=== PATIENT | female | born 1980 | race American Indian/Alaskan Native ===

== ENCOUNTER 2016-12-10 03:42 | Emergency (ER) | payer MEDICAID, OTHER ==
[2016-12-10] MEDS ORDERED: Pantoprazole 40 MG Vial IVPUSH ONE (04:35)
[2016-12-10] MEDS ORDERED: HYDROmorphone 1 MG/ML Syringe IVPUSH ONE (04:36)
[2016-12-10] MEDS ORDERED: Ondansetron 4 MG/2 ML SDV IVPUSH ONE (04:37)
--- NOTE | 2016-12-10 04:40 | EDM.PDOC ---
[id number] Complaint: Abdominal Pain Stated Complaint: STOMACH BURNING Time Seen by Provider: 12/10/16 04:38 - History of Present Illness Duration: Day(s): - Related Data Allergies Allergy/AdvReac Type Severity Reaction Status Date / Time No Known Allergies Allergy Verified 12/10/16 03:56 Home Meds: Home Meds Aspirin/Calcium Carbonate/Mag [Aspirin Buffered 325 mg Tab] 2 tab PO ASDIRECTED PRN 12/10/16 [History] Course - Vital Signs Last Recorded V/S: Last Vital Signs Temp 36.3 C 12/10/16 07:37 Pulse 74 12/10/16 07:37 Resp 18 12/10/16 07:37 BP 126/73 12/10/16 07:37 Pulse Ox 99 12/10/16 07:37 - Orders/Labs/Meds Labs: Laboratory Tests 12/10/16 12/10/16 12/10/16 Range/Units 04:21 04:35 04:35 WBC 14.3 H (4.5-11.0) K/uL RBC 4.11 (3.30-5.50) M/uL Hgb 12.7 (12.0-15.0) g/dL Hct 38.0 (36.0-48.0) % MCV 93 (80-98) fL MCH 31 (27-31) pg MCHC 33 (32-36) % Plt Count 318 (150-400) K/uL Neut % (Auto) 50 (36-66) % Lymph % (Auto) 36 (24-44) % [place] % (Auto) 10 H (2-6) % Eos % (Auto) 3 (2-4) % Baso % (Auto) 1 (0-1) % Sodium 144 (140-148) mmol/L Potassium 3.9 (3.6-5.2) mmol/L Chloride 109 H (100-108) mmol/L Carbon Dioxide 26 (21-32) mmol/L Anion Gap 12.9 (5.0-14.0) mmol/L BUN 13 (7-18) mg/dL Creatinine 0.7 (0.6-1.0) mg/dL Est Cr Clr Drug Dosing 92.79 mL/min Estimated GFR (MDRD) > 60 (>60) Glucose 105 (74-106) mg/dL Calcium 8.7 (8.5-10.1) mg/dL Total Bilirubin 0.2 (0.2-1.0) mg/dL AST 14 L (15-37) U/L ALT 16 (12-78) U/L Alkaline Phosphatase 64 (46-116) U/L C-Reactive Protein 0.35 H (0.0-0.3) mg/dL Total Protein 7.1 (6.4-8.2) g/dL Albumin 3.5 (3.4-5.0) g/dL Globulin 3.6 H (2.3-3.5) g/dL Albumin/Globulin Ratio 1.0 L (1.2-2.2) Lipase (73-393) U/L Urine Color Yellow Urine Appearance Clear Urine pH 6.0 (4.5-8.0) Ur Specific [place] 1.025 (1.008-1.030) Urine Protein Negative (NEGATIVE) mg/dL Urine Glucose (UA) Normal (NEGATIVE) mg/dL Urine Ketones Negative (NEGATIVE) mg/dL Urine Occult Blood Moderate (NEGATIVE) Urine Nitrite Negative (NEGATIVE) Urine Bilirubin Negative (NEGATIVE) Urine Urobilinogen Normal (NORMAL) mg/dL Ur Leukocyte Esterase Negative (NEGATIVE) Urine RBC 10-20 H (0-5) Urine WBC 0-5 (0-5) Ur Epithelial Cells Few Amorphous Sediment Not seen Urine Bacteria Not seen Urine Mucus Not seen 12/10/16 Range/Units 04:40 WBC (4.5-11.0) K/uL RBC (3.30-5.50) M/uL Hgb (12.0-15.0) g/dL Hct (36.0-48.0) % MCV (80-98) fL MCH (27-31) pg MCHC (32-36) % Plt Count (150-400) K/uL Neut % (Auto) (36-66) % Lymph % (Auto) (24-44) % [place] % (Auto) (2-6) % Eos % (Auto) (2-4) % Baso % (Auto) (0-1) % Sodium (140-148) mmol/L Potassium (3.6-5.2) mmol/L Chloride (100-108) mmol/L Carbon Dioxide (21-32) mmol/L Anion Gap (5.0-14.0) mmol/L BUN (7-18) mg/dL Creatinine (0.6-1.0) mg/dL Est Cr Clr Drug Dosing mL/min Estimated GFR (MDRD) (>60) Glucose (74-106) mg/dL Calcium (8.5-10.1) mg/dL Total Bilirubin (0.2-1.0) mg/dL AST (15-37) U/L ALT (12-78) U/L Alkaline Phosphatase (46-116) U/L C-Reactive Protein (0.0-0.3) mg/dL Total Protein (6.4-8.2) g/dL Albumin (3.4-5.0) g/dL Globulin (2.3-3.5) g/dL Albumin/Globulin Ratio (1.2-2.2) Lipase 176 (73-393) U/L Urine Color Urine Appearance Urine pH (4.5-8.0) Ur Specific [place] (1.008-1.030) Urine Protein (NEGATIVE) mg/dL Urine Glucose (UA) (NEGATIVE) mg/dL Urine Ketones (NEGATIVE) mg/dL Urine Occult Blood (NEGATIVE) Urine Nitrite (NEGATIVE) Urine Bilirubin (NEGATIVE) Urine Urobilinogen (NORMAL) mg/dL Ur Leukocyte Esterase (NEGATIVE) Urine RBC (0-5) Urine WBC (0-5) Ur Epithelial Cells Amorphous Sediment Urine Bacteria Urine Mucus Meds: Medications Discontinued Medications Generic Name Dose Route Start Last Admin Trade Name Freq PRN Reason Stop Dose Admin Al Hydroxide/Mg Hydroxide 15 0 ml 12/10/16 05:41 12/10/16 05:47 ml/ Lidocaine HCl 15 ml PO 12/10/16 05:42 45 ml ONETIME ONE Administration Hydromorphone HCl 0.5 mg 12/10/16 04:36 12/10/16 04:48 Dilaudid IVPUSH 12/10/16 04:37 0.5 mg ONETIME ONE Administration Sodium Chloride 1,000 mls @ 500 mls/hr 12/10/16 04:45 12/10/16 04:45 Normal Saline IV 500 mls/hr ASDIRECTED DEVONTE Administration Sodium Chloride 1,000 mls @ 500 mls/hr 12/10/16 05:45 12/10/16 06:41 Normal Saline IV 500 mls/hr ASDIRECTED DEVONTE Administration Ondansetron HCl 4 mg 12/10/16 04:37 12/10/16 04:46 Zofran IVPUSH 12/10/16 04:38 4 mg ONETIME ONE Administration Pantoprazole Sodium 40 mg 12/10/16 04:35 12/10/16 04:51 Protonix Iv IVPUSH 12/10/16 04:36 40 mg ONETIME ONE Administration Sucralfate 1 gm 12/10/16 06:42 12/10/16 07:36 Carafate PO 12/10/16 06:43 1 gm ONETIME ONE Administration Departure - Departure Disposition: Home, Self-Care 01 Clinical Impression: Gastrointestinal irritation, Dehydration - Discharge Information Instructions: Gastritis, Adult, [id number] Referrals: PCP,None [Primary Care Provider] - Forms: ED Department Discharge Care Plan Goals: eat several small meals, --daily, prilosec 20mg bid for 4 days then 1 tab daily. If persistnt problems rtc. - Assessment/Plan Plan: after fluids, protonix and IV dilaudid her pain resolved and she was feeling better. She will be discharged to home with use of oral protonix. Discussed decreasing smoking, caffiene and better eating to help her stomach. follow-up with PMD if not improving <Rosalia Landeros - Last Filed: 12/15/16 07:07> ED HPI GENERAL MEDICAL PROBLEM - General Source of Information: Reports: Patient, Family History Limitations: Reports: No Limitations - History of Present Illness INITIAL COMMENTS - FREE TEXT/NARRATIVE: pt arrived with burning pain in mid abdoman and lef sided pain. 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: Neurological History: Reports: Migraines Psychiatric History: Reports: Anxiety - Infectious Disease History Infectious Disease History: Reports: Chicken Pox - Past Surgical History Female Surgical History: Reports: Section, Tubal Ligation Social & Family History - Tobacco Use Smoking Status *Q: Current Every Day Smoker Years of Tobacco use: 15 Packs/Tins Daily: 0.5 Used Tobacco, but Quit: No Second Hand Smoke Exposure: Yes - Caffeine Use Caffeine Use: Reports: Coffee - Alcohol Use Days Per Week of Alcohol Use: 0 - Recreational Drug Use Recreational Drug Use: Yes Drug Use in Last 12 Months: No Recreational Drug Type: Reports: Marijuana/Hashish - Living Situation & Occupation Living situation: Reports: with Significant Other Occupation: Unemployed ED ROS GENERAL - Review of Systems Review Of Systems: See Below Constitutional: Reports: No Symptoms HEENT: Reports: No Symptoms Respiratory: Reports: No Symptoms Cardiovascular: Reports: No Symptoms Endocrine: Reports: No Symptoms GI/Abdominal: Reports: Abdominal Pain, Nausea, Vomiting : Reports: No Symptoms Musculoskeletal: Reports: No Symptoms Skin: Reports: No Symptoms ED EXAM, GI/ABD - Physical Exam Exam: See Below Text/Narrative:: pt arrived with a burning sensation in the abdoman.. She felt nauseated. She has not eaten or drank normally. She was at a in [place] and really had not eaten properly Exam Limited By: No Limitations General Appearance: Alert, Anxious Eyes: Bilateral: Normal Appearance, EOMI Ears: Normal TMs Nose: Normal Inspection Throat/Mouth: Normal Inspection Head: Atraumatic Neck: Normal Inspection Respiratory/Chest: No Respiratory Distress Cardiovascular: Regular Rate, Rhythm GI/Abdominal: Other ( abdoman is not guarded she has a burning sensation. ) (Female) Exam: Deferred Rectal (Female) Exam: Deferred Back Exam: Normal Inspection Extremities: Normal Inspection Neurological: Alert, Oriented, Normal Cognition Psychiatric: Depressed Mood Course - Orders/Labs/Meds Labs: Laboratory Tests 12/10/16 12/10/16 12/10/16 Range/Units 04:21 04:35 04:35 WBC 14.3 H (4.5-11.0) K/uL RBC 4.11 (3.30-5.50) M/uL Hgb 12.7 (12.0-15.0) g/dL Hct 38.0 (36.0-48.0) % MCV 93 (80-98) fL MCH 31 (27-31) pg MCHC 33 (32-36) % Plt Count 318 (150-400) K/uL Neut % (Auto) 50 (36-66) % Lymph % (Auto) 36 (24-44) % [place] % (Auto) 10 H (2-6) % Eos % (Auto) 3 (2-4) % Baso % (Auto) 1 (0-1) % Sodium 144 (140-148) mmol/L Potassium 3.9 (3.6-5.2) mmol/L Chloride 109 H (100-108) mmol/L Carbon Dioxide 26 (21-32) mmol/L Anion Gap 12.9 (5.0-14.0) mmol/L BUN 13 (7-18) mg/dL Creatinine 0.7 (0.6-1.0) mg/dL Est Cr Clr Drug Dosing 92.79 mL/min Estimated GFR (MDRD) > 60 (>60) Glucose 105 (74-106) mg/dL Calcium 8.7 (8.5-10.1) mg/dL Total Bilirubin 0.2 (0.2-1.0) mg/dL AST 14 L (15-37) U/L ALT 16 (12-78) U/L Alkaline Phosphatase 64 (46-116) U/L C-Reactive Protein 0.35 H (0.0-0.3) mg/dL Total Protein 7.1 (6.4-8.2) g/dL Albumin 3.5 (3.4-5.0) g/dL Globulin 3.6 H (2.3-3.5) g/dL Albumin/Globulin Ratio 1.0 L (1.2-2.2) Lipase (73-393) U/L Urine Color Yellow Urine Appearance Clear Urine pH 6.0 (4.5-8.0) Ur Specific [place] 1.025 (1.008-1.030) Urine Protein Negative (NEGATIVE) mg/dL Urine Glucose (UA) Normal (NEGATIVE) mg/dL Urine Ketones Negative (NEGATIVE) mg/dL Urine Occult Blood Moderate (NEGATIVE) Urine Nitrite Negative (NEGATIVE) Urine Bilirubin Negative (NEGATIVE) Urine Urobilinogen Normal (NORMAL) mg/dL Ur Leukocyte Esterase Negative (NEGATIVE) Urine RBC 10-20 H (0-5) Urine WBC 0-5 (0-5) Ur Epithelial Cells Few Amorphous Sediment Not seen Urine Bacteria Not seen Urine Mucus Not seen 12/10/16 Range/Units 04:40 WBC (4.5-11.0) K/uL RBC (3.30-5.50) M/uL Hgb (12.0-15.0) g/dL Hct (36.0-48.0) % MCV (80-98) fL MCH (27-31) pg MCHC (32-36) % Plt Count (150-400) K/uL Neut % (Auto) (36-66) % Lymph % (Auto) (24-44) % [place] % (Auto) (2-6) % Eos % (Auto) (2-4) % Baso % (Auto) (0-1) % Sodium (140-148) mmol/L Potassium (3.6-5.2) mmol/L Chloride (100-108) mmol/L Carbon Dioxide (21-32) mmol/L Anion Gap (5.0-14.0) mmol/L BUN (7-18) mg/dL Creatinine (0.6-1.0) mg/dL Est Cr Clr Drug Dosing mL/min Estimated GFR (MDRD) (>60) Glucose (74-106) mg/dL Calcium (8.5-10.1) mg/dL Total Bilirubin (0.2-1.0) mg/dL AST (15-37) U/L ALT (12-78) U/L Alkaline Phosphatase (46-116) U/L C-Reactive Protein (0.0-0.3) mg/dL Total Protein (6.4-8.2) g/dL Albumin (3.4-5.0) g/dL Globulin (2.3-3.5) g/dL Albumin/Globulin Ratio (1.2-2.2) Lipase 176 (73-393) U/L Urine Color Urine Appearance Urine pH (4.5-8.0) Ur Specific [place] (1.008-1.030) Urine Protein (NEGATIVE) mg/dL Urine Glucose (UA) (NEGATIVE) mg/dL Urine Ketones (NEGATIVE) mg/dL Urine Occult Blood (NEGATIVE) Urine Nitrite (NEGATIVE) Urine Bilirubin (NEGATIVE) Urine Urobilinogen (NORMAL) mg/dL Ur Leukocyte Esterase (NEGATIVE) Urine RBC (0-5) Urine WBC (0-5) Ur Epithelial Cells Amorphous Sediment Urine Bacteria Urine Mucus - Re-Assessments/Exams Free Text/Narrative Re-Assessment/Exam: 12/10/16 06:48 iv fluids were given --2 liters as pt was quite dehydrated. She was given protonix iv, carafate and a gi cocktail. She also was given zoforan. Her lab work looked good except her wbc was elevated. Her pain is much improved. 12/15/16 07:05 Departure - Departure Time of Disposition: 06:52 Condition: Fair
[2016-12-10] MEDS ORDERED: Sodium Chloride 0.9% 1,000 ML IV SCH ×2 (04:45→05:45)
[2016-12-10] MEDS ORDERED: Alum Hydrox/Mag Hydrox/Simeth 15 ML, Lidocaine 2% 15 ML PO ONE ×2 (05:41)
[2016-12-10] MEDS ORDERED: Sucralfate 1 GM Tab PO ONE (06:42)
[2016-12-10 07:38] VITALS: BP 126/73
--- NOTE | 2016-12-10 09:19 | CR ---
Abdomen Series w Chest 1V INDICATION: pain in left lower abdomen. FINDINGS: Comparison chest x-ray 02/03/2010. Negative chest. Normal bowel gas pattern. Scattered stool and gas in normal caliber colon. No free a ir.
== END 2016-12-10 08:31 | disposition home or self-care (01) ==
LOC: JP.ED 03:42
DX: K31.89 Other diseases of stomach and duodenum (principal); E86.0 Dehydration; K21.9 Gastro-esophageal reflux disease without esophagitis; G43.909 Migraine, unspecified, not intractable, without status migrainosus; F41.9 Anxiety disorder, unspecified; F17.210 Nicotine dependence, cigarettes, uncomplicated; Z98.51 Tubal ligation status
CPT/HCPCS: 36415; 74022; 80053; 81001; 83690; 85025; 86140; 96361; 96374; 96375; 99284; A9270; C9113; J1170; J2405; J7040

== ENCOUNTER 2017-03-12 02:44 | Emergency (ER) | payer MEDICAID ==
[2017-03-12] MEDS ORDERED: Ondansetron 4 MG/2 ML SDV IVPUSH ONE ×2 (03:55→05:30)
[2017-03-12] MEDS ORDERED: Sodium Chloride 0.9% 1,000 ML IV SCH (04:00)
--- NOTE | 2017-03-12 04:01 | EDM.PDOC ---
<Rosalia Landeros - Last Filed: 03/12/17 03:56> ED HPI GENERAL MEDICAL PROBLEM - General Chief Complaint: Respiratory Problem Stated Complaint: COLD / VOMITING / ABDOMINAL PAIN Time Seen by Provider: 03/12/17 03:56 Source of Information: Reports: Patient, Family History Limitations: Reports: No Limitations - History of Present Illness INITIAL COMMENTS - FREE TEXT/NARRATIVE: pt arrived stating that she felt like she had chest congestion earlier and now she has vomited 7 or 8 times. She has vomited twice while i examined her. Onset: Today Duration: Hour(s): Associated Symptoms: Reports: Cough, Nausea/Vomiting, Weakness Headache Pain Score (Numeric/FACES): 3 - Related Data Allergies Allergy/AdvReac Type Severity Reaction Status Date / Time No Known Allergies Allergy Verified 03/12/17 03:26 Home Meds: Home Meds NK [No Known Home Meds] 03/12/17 [History] Past Medical History HEENT History: Reports: Allergic Rhinitis Other HEENT History: migraines Gastrointestinal History: Reports: GERD Genitourinary History: Reports: UTI, Recurrent [employer] CLERK History: Reports: Neurological History: Reports: Migraines Psychiatric History: Reports: Anxiety - Infectious Disease History Infectious Disease History: Reports: Chicken Pox - Past Surgical History Female Surgical History: Reports: Section, Tubal Ligation Social & Family History - Tobacco Use Smoking Status *Q: Current Every Day Smoker Years of Tobacco use: 15 Packs/Tins Daily: 0.5 Used Tobacco, but Quit: No Tobacco Use Comment: current everyday smoker Second Hand Smoke Exposure: Yes - Caffeine Use Caffeine Use: Reports: Coffee - Alcohol Use Days Per Week of Alcohol Use: 0 - Recreational Drug Use Recreational Drug Use: Yes Drug Use in Last 12 Months: No Recreational Drug Type: Reports: Marijuana/Hashish Recreational Drug Use Frequency: Rarely - Living Situation & Occupation Living situation: Reports: with Significant Other Occupation: Unemployed ED ROS GENERAL - Review of Systems Review Of Systems: See Below Constitutional: Reports: Weakness HEENT: Reports: Throat Pain Respiratory: Reports: Cough Cardiovascular: Reports: No Symptoms Endocrine: Reports: No Symptoms GI/Abdominal: Reports: Nausea, Vomiting, Other ( pt has no abdomanal pain. ) : Reports: No Symptoms Musculoskeletal: Reports: No Symptoms Skin: Reports: No Symptoms ED EXAM, GENERAL - Physical Exam Exam: See Below Free Text/Narrative:: Pt arrived with marked vomiting. She does not have abdomanal pain. Exam Limited By: No Limitations General Appearance: Alert, Anxious, Mild Distress Ears: Normal TMs Nose: Normal Inspection Throat/Mouth: Other (pt has definite redness in her throat. ) Head: Atraumatic Neck: Lymphadenopathy (R), Lymphadenopathy (L) Respiratory/Chest: No Respiratory Distress Cardiovascular: Regular Rate, Rhythm GI/Abdominal: Soft, Non-Tender Rectal (Female) Exam: Deferred Back Exam: Normal Inspection Extremities: Normal Inspection Neurological: Alert, Oriented, Normal Cognition Psychiatric: Normal Affect Course - Vital Signs Last Recorded V/S: Last Vital Signs Temp 36.4 C 03/12/17 07:15 Pulse 78 03/12/17 07:15 Resp 16 03/12/17 07:15 BP 111/66 03/12/17 07:15 Pulse Ox 97 03/12/17 07:15 - Orders/Labs/Meds Orders: Active Orders 24 hr Category Date Time Status CULTURE STREP A CONFIRMATION [] Stat Lab 03/12/17 03:58 Results STREP SCRN A RAPID W CULT CONF [] Stat Lab 03/12/17 03:58 Results Sodium Chloride 0.9% [Normal Saline] 1,000 ml Med 03/12/17 04:00 Active IV ASDIRECTED Medication Orders Sodium Chloride (Normal Saline) 1,000 mls @ 999 mls/hr IV ASDIRECTED DEVONTE Last Admin: 03/12/17 04:34 Dose: 999 mls/hr Labs: Laboratory Tests 03/12/17 03/12/17 Range/Units 04:07 04:07 WBC 11.6 H (4.5-11.0) K/uL RBC 4.42 (3.30-5.50) M/uL Hgb 13.3 (12.0-15.0) g/dL Hct 39.8 (36.0-48.0) % MCV 90 (80-98) fL MCH 30 (27-31) pg MCHC 33 (32-36) % Plt Count 290 (150-400) K/uL Neut % (Auto) 52 (36-66) % Lymph % (Auto) 37 (24-44) % [place] % (Auto) 8 H (2-6) % Eos % (Auto) 2 (2-4) % Baso % (Auto) 0 (0-1) % Sodium 140 (140-148) mmol/L Potassium 3.7 (3.6-5.2) mmol/L Chloride 106 (100-108) mmol/L Carbon Dioxide 27 (21-32) mmol/L Anion Gap 7.1 (5.0-14.0) mmol/L BUN 12 (7-18) mg/dL Creatinine 0.8 (0.6-1.0) mg/dL Est Cr Clr Drug Dosing 72.28 mL/min Estimated GFR (MDRD) > 60 (>60) Glucose 99 (74-106) mg/dL Calcium 8.8 (8.5-10.1) mg/dL Total Bilirubin 0.2 (0.2-1.0) mg/dL AST 19 (15-37) U/L ALT 21 (12-78) U/L Alkaline Phosphatase 70 (46-116) U/L Total Protein 8.0 (6.4-8.2) g/dL Albumin 3.8 (3.4-5.0) g/dL Globulin 4.2 H (2.3-3.5) g/dL Albumin/Globulin Ratio 0.9 L (1.2-2.2) Meds: Medications Generic Name Dose Route Start Last Admin Trade Name Freq PRN Reason Stop Dose Admin Sodium Chloride 1,000 mls @ 999 mls/hr 03/12/17 04:00 03/12/17 04:34 Normal Saline IV 999 mls/hr ASDIRECTED DEVONTE Administration Discontinued Medications Generic Name Dose Route Start Last Admin Trade Name Freq PRN Reason Stop Dose Admin Ondansetron HCl 4 mg 03/12/17 03:55 03/12/17 04:35 Zofran IVPUSH 03/12/17 03:56 Not Given ONETIME ONE Ondansetron HCl 4 mg 03/12/17 05:30 03/12/17 05:45 Zofran IVPUSH 03/12/17 05:31 4 mg ONETIME ONE Administration Prochlorperazine Edisylate 10 mg 03/12/17 05:18 03/12/17 05:23 Compazine IVPUSH 03/12/17 05:19 Not Given ONETIME ONE Prochlorperazine Maleate 25 mg 03/12/17 05:28 03/12/17 05:47 Compro RECTAL 03/12/17 05:29 25 mg ONETIME ONE Administration Sumatriptan Succinate 6 mg 03/12/17 05:29 03/12/17 05:47 Imitrex SUBCUT 03/12/17 05:30 6 mg ONETIME ONE Administration Departure - Departure Disposition: Home, Self-Care 01 Clinical Impression: Migraine - Discharge Information Instructions: Upper Respiratory Infection, Adult, [id number] Referrals: PCP,None [Primary Care Provider] - Forms: ED Department Discharge Additional Instructions: Follow up with your primary care provider. Return to emergency department if symptoms worsen or if not improving after sleep. <John Cunningham - Last Filed: 03/12/17 07:27> ED HPI GENERAL MEDICAL PROBLEM - General Source of Information: Reports: Patient History Limitations: Reports: No Limitations - History of Present Illness INITIAL COMMENTS - FREE TEXT/NARRATIVE: Care assumed from Dr. Landeros at 0405. Patient c/o store throat and "chest cold" today. History is somewhat tangential. She also c/o unilateral (L) sided frontal headache which preceded n/v, which she thinks may be like her previous MHAs. She also c/o diarrhea today, which she says she has had in the past associated with MHA. Headache is described as throbbing, reaching maximum intensity over the course of an hour. No h/o neck pain, sudden onset, "pop" in neck or head, or LOC/Sz. Vomiting is non-bileous w/o blood or coffee ground emisis. No abdominal pain. Quality: Reports: Dull, Same as Previous Episode (patient equivocates), Throbbing Severity: Severe Improves with: Reports: None Worsens with: Reports: None Context: Denies: Activity, Exercise, Lifting ED ROS GENERAL - Review of Systems GI/Abdominal: Reports: Diarrhea Neurological: Reports: Headache. Denies: Seizure, Syncope, Difficulty Walking, Weakness, Change in Speech ED EXAM, GENERAL - Physical Exam Ear Exam: Bilateral Ear: TM normal Peripheral Pulses: 4+: Radial (L), Radial (R) GI/Abdominal: No Distention, No Mass Neurological: CN II-XII Intact, Normal Gait, Normal Reflexes, No Motor/Sensory Deficits. No: Memory Loss Recent Events, Abnormal Gait, Sensory/Motor Deficit Course - Re-Assessments/Exams Free Text/Narrative Re-Assessment/Exam: 03/12/17 07:25 After sumatriptan and odansetron headache and nausea resolved. Patient well appearing and requests to go home and go to sleep. Departure - Departure Time of Disposition: 07:26 Condition: Good
[2017-03-12] MEDS ORDERED: Prochlorperazine 10 MG/2 ML SDV IVPUSH ONE (05:18)
[2017-03-12] MEDS ORDERED: Prochlorperazine 25 MG Supp RECTAL ONE (05:28)
[2017-03-12] MEDS ORDERED: SUMAtriptan 6 MG/0.5 ML SDV SUBCUT ONE (05:29)
[2017-03-12 07:16] VITALS: BP 111/66
== END 2017-03-12 07:42 | disposition home or self-care (01) ==
LOC: JP.ED 02:44
DX: G43.909 Migraine, unspecified, not intractable, without status migrainosus (principal); K21.9 Gastro-esophageal reflux disease without esophagitis; F17.210 Nicotine dependence, cigarettes, uncomplicated; Z87.440 Personal history of urinary (tract) infections; Z98.51 Tubal ligation status
CPT/HCPCS: 36415; 80053; 85025; 87081; 87430; 96361; 96372; 96374; 99284; A9270; J2405; J3030; J7040

== ENCOUNTER 2019-10-01 18:05 | Emergency (ER) | payer MEDICAID ==
[2019-10-01] MEDS ORDERED: Alum Hydrox/Mag Hydrox/Simeth 15 ML, Lidocaine 2% 15 ML PO ONE ×2 (18:35)
--- NOTE | 2019-10-01 18:38 | EDM.PDOC ---
ED HPI GENERAL MEDICAL PROBLEM - General Chief Complaint: General Stated Complaint: LEFT ARM NUMBNESS,HEARTBURN Time Seen by Provider: 10/01/19 18:36 Source of Information: Reports: Patient History Limitations: Reports: No Limitations - History of Present Illness INITIAL COMMENTS - FREE TEXT/NARRATIVE: pt arrived with a history of heart burn for the last 36 hours. She now has developed some left arm numbness. She has felt mildly stressed. She has not vomited. Onset: Other ( this heart burn started last nite. ) Duration: Hour(s): Location: Reports: Abdomen, Upper Extremity, Left Associated Symptoms: Reports: No Other Symptoms, Other (pt has clearly not had chest pain. 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: Neurological History: Reports: Migraines Psychiatric History: Reports: Anxiety - Infectious Disease History Infectious Disease History: Reports: Chicken Pox - Past Surgical History Female Surgical History: Reports: Section, Tubal Ligation Social & Family History - Tobacco Use Smoking Status *Q: Current Every Day Smoker Years of Tobacco use: 25 Packs/Tins Daily: 0.5 - Caffeine Use Caffeine Use: Reports: Coffee, Soda, Tea - Recreational Drug Use Recreational Drug Use: No - Living Situation & Occupation Living situation: Reports: with Significant Other Occupation: Unemployed ED ROS GENERAL - Review of Systems Review Of Systems: See Below Constitutional: Reports: No Symptoms HEENT: Reports: No Symptoms Respiratory: Reports: No Symptoms Cardiovascular: Reports: Other (left arm numbness. Epigastric burning. ) Endocrine: Reports: No Symptoms GI/Abdominal: Reports: Abdominal Pain, Other (heart burn. ) : Reports: No Symptoms Musculoskeletal: Reports: No Symptoms Skin: Reports: No Symptoms Neurological: Reports: No Symptoms Psychiatric: Reports: No Symptoms ED EXAM, GENERAL - Physical Exam Exam: See Below Free Text/Narrative:: pt arrived with pain in the epigastric area and numbness in the left arm. Exam Limited By: No Limitations General Appearance: Alert, Anxious, Mild Distress Ears: Normal TMs Nose: Normal Inspection Throat/Mouth: Normal Inspection Head: Atraumatic Neck: Normal Inspection Respiratory/Chest: No Respiratory Distress Cardiovascular: Regular Rate, Rhythm GI/Abdominal: Soft, Non-Tender (Female) Exam: Deferred Rectal (Female) Exam: Deferred Back Exam: Normal Inspection Extremities: Normal Inspection Neurological: Alert, Oriented, Normal Cognition Course - Vital Signs Last Recorded V/S: Last Vital Signs Temp 36.6 C 10/01/19 18:27 Pulse 97 10/01/19 18:27 Resp 12 10/01/19 18:27 BP 114/77 10/01/19 18:27 Pulse Ox 100 10/01/19 18:27 - Orders/Labs/Meds Orders: Active Orders 24 hr Category Date Time Status UA W/MICROSCOPIC [URIN] Urgent Lab 10/01/19 18:34 Ordered Labs: Laboratory Tests 10/01/19 10/01/19 10/01/19 Range/Units 18:52 18:52 18:52 WBC 11.7 H (4.5-11.0) K/uL RBC 4.36 (3.30-5.50) M/uL Hgb 13.0 (12.0-15.0) g/dL Hct 39.7 (36.0-48.0) % MCV 91 (80-98) fL MCH 30 (27-31) pg MCHC 33 (32-36) % Plt Count 347 (150-400) K/uL Neut % (Auto) 61 (36-66) % Lymph % (Auto) 28 (24-44) % [place] % (Auto) 9 H (2-6) % Eos % (Auto) 2 (2-4) % Baso % (Auto) 1 (0-1) % Sodium 138 L (140-148) mmol/L Potassium 3.9 (3.6-5.2) mmol/L Chloride 102 (100-108) mmol/L Carbon Dioxide 26 (21-32) mmol/L Anion Gap 13.9 (5.0-14.0) mmol/L BUN 12 (7-18) mg/dL Creatinine 0.8 (0.6-1.0) mg/dL Est Cr Clr Drug Dosing 82.33 mL/min Estimated GFR (MDRD) > 60 (>60) Glucose 102 (74-106) mg/dL Calcium 8.9 (8.5-10.1) mg/dL Total Bilirubin 0.3 (0.2-1.0) mg/dL AST 12 L (15-37) U/L ALT 20 (12-78) U/L Alkaline Phosphatase 80 (46-116) U/L Troponin I < 0.017 (0.000-0.056) ng/mL Total Protein 7.3 (6.4-8.2) g/dL Albumin 3.6 (3.4-5.0) g/dL Globulin 3.7 H (2.3-3.5) g/dL Albumin/Globulin Ratio 1.0 L (1.2-2.2) Meds: Medications Discontinued Medications Generic Name Dose Route Start Last Admin Trade Name Freq PRN Reason Stop Dose Admin Al Hydroxide/Mg Hydroxide 15 0 ml 10/01/19 18:35 10/01/19 18:38 ml/ Lidocaine HCl 15 ml PO 10/01/19 18:36 30 ml ONETIME ONE Administration Famotidine 20 mg 10/01/19 19:54 10/01/19 20:08 Pepcid PO 10/01/19 19:55 20 mg ONETIME ONE Administration Lorazepam 0.5 mg 10/01/19 19:31 10/01/19 19:42 Ativan PO 10/01/19 19:32 0.5 mg ONETIME ONE Administration - Re-Assessments/Exams Free Text/Narrative Re-Assessment/Exam: 10/01/19 20:15 pt had a normal ekg and trop. She never had chest pain. She did get relief of the heart burn with the GI cocktail. She is still having some arm tightness and numbness present. She was given ativan .5 and pecid 20 mg. Pt had normal chems and cbc otherise. 10/01/19 20:16 Departure - Departure Time of Disposition: 20:30 Disposition: Home, Self-Care 01 Condition: Fair Clinical Impression: Heartburn - Discharge Information Referrals: PCP,None [Primary Care Provider] - Forms: ED Department Discharge Care Plan Goals: avoid spicey food, advil use tylenol for pain, prilosec 20mg bid for 1 week and then 1 tab daily maalox tables 2 tabs after each meal. If ongoing problems see her own physian. Sepsis Event Note - Evaluation Sepsis Screening Result: No Definite Risk - Focused Exam Vital Signs: Vital Signs Temp Pulse Resp BP Pulse Ox 10/01/19 18:27 36.6 C 97 12 114/77 100 10/01/19 18:22 36.6 C 97 12 114/77 100 Date Exam was Performed: 10/01/19 Time Exam was Performed: 20:30 - My Orders Last 24 Hours: My Active Orders 10/01/19 18:34 UA W/MICROSCOPIC [URIN] Urgent - Assessment/Plan Last 24 Hours: My Active Orders 10/01/19 18:34 UA W/MICROSCOPIC [URIN] Urgent
[2019-10-01 19:12] VITALS: BP 114/77; PULSE 97
[2019-10-01] MEDS ORDERED: LORazepam 0.5 MG Tab PO ONE (19:31)
[2019-10-01] MEDS ORDERED: Famotidine 20 MG Tab PO ONE (19:54)
== END 2019-10-01 20:39 | disposition home or self-care (01) ==
LOC: JP.ED 18:05
DX: R12 Heartburn (principal)
CPT/HCPCS: 36415; 80053; 84484; 85025; 99284; A9270

== ENCOUNTER 2020-07-21 09:12 | Emergency (ER) | payer MEDICAID ==
[2020-07-21 09:29] VITALS: BP 130/84; PULSE 55
[2020-07-21] MEDS ORDERED: cefTRIAXone 1 GM Vial IM ONE (09:50)
--- NOTE | 2020-07-21 09:52 | EDM.PDOC ---
ED HPI GENERAL MEDICAL PROBLEM - General Chief Complaint: ENT Problem Stated Complaint: POSSIBLE STREP Time Seen by Provider: 07/21/20 09:53 Source of Information: Reports: Patient History Limitations: Reports: No Limitations - History of Present Illness INITIAL COMMENTS - FREE TEXT/NARRATIVE: pt arrived with a sore throat. She states her son had a positive strept yesterday. She has been sick since sat. Onset: Other ( sat. ) Duration: Hour(s): Location: Reports: Neck Associated Symptoms: Reports: Other ( body aches. ) Throat Pain Score (Numeric/FACES): 8 - Related Data Allergies Allergy/AdvReac Type Severity Reaction Status Date / Time No Known Allergies Allergy Verified 03/12/17 03:26 Home Meds: Home Meds NK [No Known Home Meds] 03/12/17 [History] Past Medical History HEENT History: Reports: Allergic Rhinitis Other HEENT History: migraines Gastrointestinal History: Reports: GERD Genitourinary History: Reports: UTI, Recurrent [employer] History: Reports: Neurological History: Reports: Migraines Psychiatric History: Reports: Anxiety - Infectious Disease History Infectious Disease History: Reports: Chicken Pox - Past Surgical History Female Surgical History: Reports: Section, Tubal Ligation Social & Family History - Tobacco Use Tobacco Use Status *Q: Current Every Day Tobacco User Years of Tobacco use: 25 Packs/Tins Daily: 0.5 - Caffeine Use Caffeine Use: Reports: Coffee, Soda, Tea - Recreational Drug Use Recreational Drug Use: No - Living Situation & Occupation Living situation: Reports: with Significant Other Occupation: Unemployed ED ROS ENT - Review of Systems Review Of Systems: See Below Constitutional: Reports: Chills, Malaise, Weakness HEENT: Reports: Throat Pain, Throat Swelling Respiratory: Reports: No Symptoms Cardiovascular: Reports: No Symptoms Endocrine: Reports: No Symptoms GI/Abdominal: Reports: No Symptoms : Reports: No Symptoms Musculoskeletal: Reports: No Symptoms Skin: Reports: No Symptoms ED EXAM, ENT - Physical Exam Exam: See Below Text/Narrative:: pt arrived with a sore throat. There is strept in the household. Exam Limited By: No Limitations General Appearance: Alert, Moderate Distress Ears: Normal TMs Nose: Normal Inspection Mouth/Throat: Tongue Swelling, Tonsillar Erythema, Tonsillar Exudates Head: Atraumatic Neck: Lymphadenopathy (R), Lymphadenopathy (L) Respiratory/Chest: No Respiratory Distress Cardiovascular: Regular Rate, Rhythm Course - Vital Signs Last Recorded V/S: Last Vital Signs Temp 37.8 C 07/21/20 09:28 Pulse 55 L 07/21/20 09:28 Resp 16 07/21/20 09:28 BP 130/84 07/21/20 09:28 Pulse Ox 100 07/21/20 09:28 - Orders/Labs/Meds Orders: Active Orders 24 hr Category Date Time Status Lidocaine 1% [Xylocaine-MPF 1%] Med 07/21/20 09:52 Once 5 ml INJECT ONETIME ONE Meds: Medications Discontinued Medications Generic Name Dose Route Start Last Admin Trade Name Denilson PRN Reason Stop Dose Admin Ceftriaxone Sodium 1 gm 07/21/20 09:50 Rocephin IM 07/21/20 09:51 ONETIME ONE - Re-Assessments/Exams Free Text/Narrative Re-Assessment/Exam: 07/21/20 09:55 pt was given rocephen 1 gm im. Departure - Departure Time of Disposition: 09:51 Disposition: Home, Self-Care 01 Condition: Fair Clinical Impression: Strep pharyngitis - Discharge Information Referrals: PCP,None [Primary Care Provider] - Forms: ED Department Discharge Care Plan Goals: push fluids, amoxicillin 500mg qid for 10 days. tylenol and motrin for discomfort. Sepsis Event Note (ED) - Evaluation Sepsis Screening Result: No Definite Risk - Focused Exam Vital Signs: Vital Signs Temp Pulse Resp BP Pulse Ox 07/21/20 09:28 37.8 C 55 L 16 130/84 100 - My Orders Last 24 Hours: My Active Orders 07/21/20 09:52 Lidocaine 1% [Xylocaine-MPF 1%] 5 ml INJECT ONETIME ONE - Assessment/Plan Last 24 Hours: My Active Orders 07/21/20 09:52 Lidocaine 1% [Xylocaine-MPF 1%] 5 ml INJECT ONETIME ONE
== END 2020-07-21 10:17 | disposition home or self-care (01) ==
LOC: JP.ED 09:12
DX: J02.0 Streptococcal pharyngitis (principal); Z72.0 Tobacco use
CPT/HCPCS: 87880-QW; 96372; 99283; J0696; J2001

== ENCOUNTER 2022-11-02 00:04 | Emergency (ER) | payer MEDICAID ==
[2022-11-02 00:27] VITALS: BP 150/93; PULSE 97
[2022-11-02 00:49] LABS: BASOPHILS ABSOLUTE AUTO 0.08 K/uL (0.00-0.10); BASOPHILS PERCENT AUTO 0.9 % (0.1-1.3); EOSINOPHILS ABSOLUTE AUTO 0.46 K/uL (0.00-0.40); HEMATOCRIT 39.7 % (34.3-46.0); HEMOGLOBIN 12.4 g/dL (11.2-15.5); IMMATURE GRAN ABSOLUTE AUTO 0.04 K/uL (0.00-0.23); IMMATURE GRAN PERCENT AUTO 0.4 % (0.0-0.7); LYMPHOCYTES ABSOLUTE AUTO 3.44 K/uL (0.8-3.3); LYMPHOCYTES PERCENT AUTO 37.2 % (11.4-47.7); MEAN CORPUSCULAR HEMOGLOBIN 28.5 pg (31.6-35.5); MEAN CORPUSCULAR HGB CONC 31.2 g/dL (31.6-35.5); MEAN CORPUSCULAR VOLUME 91.3 fL (81.4-99.0); MONOCYTES ABSOLUTE AUTO 1.06 K/uL (0.20-0.90); MONOCYTES PERCENT AUTO 11.5 % (3.3-12.6); NEUTROPHILS ABSOLUTE AUTO 4.17 K/uL (1.0-7.6); PLATELET COUNT,PLT 297 K/uL (130-375); RED BLOOD CELL COUNT 4.35 M/uL (3.77-5.24); WHITE BLOOD CELL COUNT,WBC 9.3 K/uL (3.2-11.0)
[2022-11-02] MEDS ORDERED: Cetirizine 10 MG Tab PO ONE (02:09)
== END 2022-11-02 02:27 | disposition home or self-care (01) ==
LOC: JP.ED 00:04
DX: J30.1 Allergic rhinitis due to pollen (principal); J02.9 Acute pharyngitis, unspecified; Z72.0 Tobacco use
CPT/HCPCS: 36415; 85025; 87081; 87880; 99283; A9270

== ENCOUNTER 2024-07-26 05:27 | Emergency (ER) | payer MEDICAID ==
[2024-07-26 05:42] VITALS: BP 150/85; PULSE 97
[2024-07-26] MEDS: Penicillin G Benzathine 1,200,000 Units/2 ML Syringe IM ONE (06:20)
[2024-07-26] MEDS: Dexamethasone 4 MG/ML SDV PO ONE (06:20)
== END 2024-07-26 06:44 | disposition home or self-care (01) ==
LOC: JP.ED 05:27
DX: J02.0 Streptococcal pharyngitis (principal); F17.210 Nicotine dependence, cigarettes, uncomplicated
CPT/HCPCS: 87428; 87651; 96372; 99283; J0561; J1100